=== PATIENT | female | born 1960 | race Caucasian/White ===

== ENCOUNTER 2017-04-18 16:23 | Emergency (ER) | payer OTHER ==
[~2017-04-18] VITALS: Ht 165.1 cm; Wt 95.4 kg
[2017-04-18 16:25] VITALS: BP 163/89
== END 2017-04-18 17:47 | disposition home or self-care (01) ==
LOC: ED 17:30
DX: S60.522A Blister (nonthermal) of left hand, initial encounter (principal); L02.512 Cutaneous abscess of left hand; X58.XXXA Exposure to other specified factors, initial encounter; Y93.89 Activity, other specified; Y92.89 Other specified places as the place of occurrence of the external cause; Y99.9 Unspecified external cause status; E03.9 Hypothyroidism, unspecified; M06.9 Rheumatoid arthritis, unspecified; Z87.891 Personal history of nicotine dependence
CPT/HCPCS: 10060; 99283